=== PATIENT | female | born 1995 | race Caucasian/White ===

== ENCOUNTER 2024-11-23 10:23 | Outpatient (AMB) | payer MEDICAID, SELFPAY ==
[2024-11-23 10:37] VITALS: BP 102/67; PULSE 108; RESP 18; TEMP 36.2; O2SAT 98; BMI 22.6
--- NOTE | 2024-11-23 10:37 | OBCLNT_ITS ---
Vital Signs 11/23/24 10:37 Height 1.63 m Height Method Stated Weight 59.874 kg Weight Measurement Method Standing Scale BMI 22.6 BP 102/67 Blood Pressure Source Automatic Cuff Blood Pressure Location Left Upper Arm Position Sitting Respiration 18 Pulse 108 H Pulse Source Monitor Temp 97.2 F Temp Source Oral Pulse Oximetry (%) 98 Oxygen Delivery Method Room Air Allergies/Home Meds Allergies & Medications Allergies No Known Allergies Allergy (Verified 11/23/24 10:39) Medication Reconciliation No Known Home Medications 11/23/24 [History Confirmed 11/23/24] Intake Visit Data Collection New Patient or Established: Established Patient (seen at [facility] within 3 years) Reason for Visit:: OBI Seen by Clinical Staff ONLY (RN/MA): No Mat Packer Required: No Do You Feel Safe at Home: Yes Authorities Contacted: N/A PCP or OBGYN visit in last 3 months: Yes Hx Now: Yes Are you currently on any form of Control: No Last menstrual period: 06/17/24 Pain Present Currently: No Pain Scale Used: Zambrano-Eldridge/Numerical Pain scale:: 0 Smoking Status Smoking Status: Current every day smoker Cessation Counseling Provided: BETTY was advised that quitting smoking is the single most important factor to protect the health of themselves and their family. Discussed the benefits of quitting smoking with patient. Encouraged patient to quit smoking and provided Cessation assistance materials and resources. Tobacco Use: Cigarette (stopped) Years smoked: 0 (patient stopped smoking x 2 years) Are you interested in Quitting?: No Questionnaires Covid-19 Vaccine Questionnaire Has patient been vacinated for Covid-19 Have you been vacinated for Covid-19: Yes PHQ-9 PHQ-2 Over the last 2 weeks, how often have you been bothered by any of the following problems? 1. Little interest or pleasure in doing things: not at all 2. Feeling down, depressed, or hopeless: not at all Total score: 0 PHQ-9 3. Trouble falling or staying asleep, or sleeping too much: Not at all 4. Feeling tired or having little energy: Not at all 5. Poor appetite or overeating: Not at all 6. Feeling bad about yourself - or that you are a failure or have let yourself or your family down: Not at all 7. Trouble concentrating on things, such as reading the newspaper or watching television: Not at all 8. Moving or speaking so slowly that other people could have noticed? - Or the opposite - being so fidgety or restless that you have been moving around a lot more than usual: not at all 9. Thoughts that you would be better off or of hurting yourself in some way: Not at all Total score: 0 If you checked off any problems, how difficult have these problems made it for you to do your work, take care of things at home, or get along with other people?: not difficult at all Source: Developed by Drs. Jose Last, Latrice Baron, Boy Novak and colleagues, with an educational gus from [employer]. Depression screen completed yes Social History Living Situation History Marital Status: Single Lives With: Family Housing: House Tobacco History Smoking Status: Current every day smoker Second Hand Smoke Exposure: No Alcohol History Alcohol Intake: Never Domestic Abuse History Do You Feel Safe at Home: Yes History of Present Illness HPI Narrative 29-year-old 4 para 3 for OBI. Patient has poor dates. She thinks maybe her last period was June 17, 2024. Estimated due date March 22, 2025. Patient is 23 and 1 weeks today she reports movement. Denies any contractions. No leaking no bleeding. Patient does not have custody of her last 3 children. She reports she is in a better relationship now and is monogamous. Denies any social habits. Denies surgeries. Denies any existing chronic illness. Patient is currently taking vitamins. 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 No dates. Patient thinks maybe June 17, 2024. Reports movement. Denies any leaking or bleeding. Patient is taking vitamins. And she is happy about this . Schedule anatomy scan at [facility]. Patient has no transportation. OB panel today with 1 hour GTT hemoglobin A1c is NIPT and carrier screens. Discussed labor. Encourage fluids. I discussed diet and weight gain and patient to continue prenatals Menstrual History Menstrual reliability: approximate (month known) Flow: normal Menstrual regularity: regular Monthly: Yes Age at menarche: 14 On control pills at conception: No OB History : 4 Para: 3 Hx # Pregnancies: 0 Hx Total # of Abortions (Spontaneous & Elective): 0 # of Living Children: 3 Infection History & Risk Evaluation History of STDs: none HIV risk evaluation: low risk Hepatitis B risk evaluation: low risk Patient or partner has history of Genital Herpes: No Varicella/chicken pox status: immunized Genetic Screening & History Genetic Screening/Teratology Counseling - Includes patient, baby's father, or anyone in either family with: 1. Patient's age 35 years or older as of estimated date of delivery: No 2. Thalassemia (Citizen Of [place], Ukrainian, Mediterranean, or Background); MCV less than 80: No 3. Neural Tube Defect (Meningomyelocele, Spina Bifida, or Anencephaly): No 4. Congenital Heart Defect: No 5. Down Syndrome: No 6. Dariel-Sachs (Ashkenazi Hoahaoism, Cajun, English [place]): No 7. Manuelito Disease (Ashkenazi Hoahaoism): No 8. Familial Dysautonomia (Ashkenazi Hoahaoism): No 9. Sickle Cell Disease or Trait (): No 10. Hemophilia or other blood disorders: No 11. Muscular Dystrophy: No 12. Cystic Fibrosis: No 13. [place]'s Chorea: No 14. Mental Retardation/Autism: No 15. Other inherited genetic or chromosomal disorder: No 16. Maternal Metabolic Disorder (EG,TYPE 1 Diabetes, PKU): No 17. Patient or baby's father had a child with defects not listed above: No 18. Recurrent loss or a stillbirth: No 19. Medications (including supplements, vitamins, herbs or otc drugs)/illicit/recreational drugs/alcohol since last menstrual period: No 20. Any other: No Infection History 1. Live with someone with TB or exposed to TB: No 2. Rash or viral illness since last menstrual period: No 3. Hepatitis B,C: No Other (see comments) Source: [employer] Review of Systems Review of Systems Systems Reviewed: All systems reviewed, normal except as documented Exam General Limitations: no limitations General Appearance: alert, in no apparent distress, comfortable, cooperative, healthy appearing, well developed and well groomed ENT ENT exam: Present normal exam, normal oropharynx and mucous membranes moist Chest Chest inspection: Present normal inspection and symmetric chest wall rise Resp Respiratory exam: Present normal lung sounds bilaterally Card Cardiovascular exam: Present regular rate, normal rhythm and normal heart sounds Abdominal Abdominal exam: Present soft and normal bowel sounds Psych Psychiatric exam: Present normal affect and normal mood Office Procedures OB Clinic LOC & Office Proc's Nursing/Assessment Patient Status: Established Patient OB Clinic Nursing Assessment: Medication Reconciliation, Update PMH in EMR and Vital Signs OB Clinic Coordination of Care: Complex Care and Chronic Disease 1-5, Education Complex Pt/Fam, Consent,records obtained, informed consent, Lab and Imaging orders, Results/Orders obtained and Staff clarify orders Special Needs: Heart tones Established Patient Charge Established Patient Point Assignment: 140 Established Patient Point Charge: EP Level 4 (120-155) Assessment & Plan Diagnosis / Problem List (1) Encounter for supervision of high risk in second trimester, antepartum: Status: Acute Plan OB panel today with 1 hour GTT, hemoglobin A1c, NIPT and carrier screens. I scheduled OB sono at [facility]. Patient does not have transportation. Discussed labor signs and symptoms and prevention. Increase fluids. And return in 4 weeks OB check Additional Plan Follow Up: 4 Weeks (obc)
== END 2024-11-23 11:01 | disposition home or self-care (01) ==
LOC: HODSOBC 10:23
PROVIDERS: Supervising Provider Advanced Practice Midwife; Visit Provider Advanced Practice Midwife
DX: O09.92 Supervision of high risk pregnancy, unspecified, second trimester (principal); Z3A.22 22 weeks gestation of pregnancy; Z59.82 Transportation insecurity
CPT/HCPCS: 99214; G0463

== ENCOUNTER 2024-11-29 18:31 | Emergency (ER) | payer MEDICAID, SELFPAY ==
[2024-11-29 18:32] VITALS: BMI 23.5
[2024-11-29 18:57] VITALS: BP 104/72; PULSE 112; RESP 18; TEMP 37.3; O2SAT 98
--- NOTE | 2024-11-29 19:44 | EDNOTE_ITS ---
ED Fever RME/HPI General Chief Complaint: Fever Stated Complaint: FEVER X 4-5 DAYS; PREG [id number] Time Seen by Provider: 11/29/24 18:54 Arrival date/time: 11/29/24 18:31 RME / HPI RME / HPI Narrative: 29-year-old female presents to the ED with a complaint of fever x 4 to 5 days , right flank pain, urinary frequency, dysuria with scant amounts. She is currently and states she has been unable to feel her baby move for the past 2 days. She has had some cramping but denies any spotting. Related Data Home Medications ?Medication ?Instructions ?Recorded ?Confirmed No Known Home Medications 11/23/2403/11 Allergies Allergy/AdvReac Type Severity Reaction Status Date / Time No Known Allergies Allergy Verified 11/29/24 18:35 Review of Systems Review of Systems Systems Reviewed: All systems reviewed, normal except as documented Past Medical History Past Medical History NEUROLOGIC: Negative Neurological Disorders CARDIAC: Negative Congestive Heart Failure RESPIRATORY: Negative Chronic Obstructive Pulmonary Disease (COPD) GENITOURINARY: Negative Renal Disease REPRODUCTIVE: Negative Pelvic Inflammatory Disease MUSCULOSKELETAL: Negative Musculoskeletal Disorders ENDOCRINE: Negative Diabetes Mellitus Type 1 or Diabetes Mellitus Type 2 HEMATOLOGIC: Negative Blood Disorders OTHER HISTORY: Negative Autoimmune Disease or Blood Transfusions Family History FAMILY HISTORY: Negative Family Psychiatric Problems, Family Respiratory Disorders, Family Cardiac Disorders, Family Gastrointestinal Problems, Family Cancer, Family Surgery or Family Anesthesia Reaction Surgical History SURGICAL: Negative Cardiac Surgery or Section Social History SMOKING STATUS: Former smoker SECOND HAND EXPOSURE: No Physical Exam Narrative Physical exam: Alert and oriented 29-year-old female, afebrile, no acute distress. Blood pressure 104/72, pulse 112, respirations 18 nonlabored, temp 99.2, O2 sat 98% on room air. Lungs are clear, tachycardia noted, normal rhythm. Abdomen is soft and nontender. Course Course Course Narrative: Labs ordered including COVID 19 swab, influenza A/B swab, urinalysis, urine drug screen, and heart tones. Above orders were unable to be completed as patient eloped from the waiting room. Quality Measures none Orders Category Date Time Status Bedside COVID-19 Antigen Test NOW Care 11/29/24 19:45 Completed Bedside Influenza A&B Antigen Test NOW Care 11/29/24 19:47 Completed heart tone auscultation ONCE Care 11/29/24 19:45 Completed Reevaluation(s) Reevaluation #1: Eloped Vital Signs Vital signs: Vital Signs Temperature 99.2 F 11/29/24 18:57 Pulse Rate 112 H 11/29/24 18:57 Respiratory Rate 18 11/29/24 18:57 Blood Pressure 104/72 11/29/24 18:57 Pulse Oximetry (%) 98 11/29/24 18:57 Oxygen Delivery Method Room Air 11/29/24 18:57 Fever MDM Narrative MDM Narrative:: 29-year-old female presents to the ED with a complaint of fever x 4 to 5 days , right flank pain, urinary frequency, dysuria with scant amounts. She is currently and states she has been unable to feel her baby move for the past 2 days. She has had some cramping but denies any spotting. Alert and oriented 29-year-old female, afebrile, no acute distress. Blood pressure 104/72, pulse 112, respirations 18 nonlabored, temp 99.2, O2 sat 98% on room air. Lungs are clear, tachycardia noted, normal rhythm. Abdomen is soft and nontender. Labs ordered including COVID 19 swab, influenza A/B swab, urinalysis, urine drug screen, and heart tones. Above orders were unable to be completed as patient eloped from the waiting room. Patient data External records reviewed:: None Clinical information provided by:: patient Social determinants that could affect healthcare access:: none Patient has the following chronic illnesses:: High risk , history of methamphetamine abuse, history of subchorionic hemorrhage. How is presenting disease/condition affected by chronic disease/condition?: uneffected by Evaluation data The following diagnostics were reviewed and interpreted by me:: other (specify) (N/A due to patient elopement.) Lab and/or radiology exams considered but not ordered:: N/A Interpretation Summary: N/A due to elopement Medications / Prescriptions Medications or Prescriptions considered but not ordered:: N/A Medication administrations:: N/A Consultations Consultation(s) initiated? (list below): No Diagnosis Fever Differential Diagnosis: fever of unknown origin, pyelonephritis, viral infection, sepsis and influenza Most likely diagnosis given after review of the tests above:: Unknown due to elopement Admission Indicated Admission indicated?: not indicated Explain why admission is indicated or not indicated:: Patient eloped Admission Request Was there a request for admission?: No Admission Attestation Admission request attestation: Patient eloped Disposition Plan Disposition Plan: other (specify) (Elopement) Discharge Attestation Discharge Attestation: Elopement Discharge Plan Plan Patient Disposition: Elopement Prescriptions/Referrals Prescriptions/Med Rec: No Action No Known Home Medications Referrals: Jean Claude Medrano MD [Primary Care Provider] - In 1 week Problem List Clinical Impression: Fever of unknown origin, Flank pain Patient/Caregiver Discharge Instructions Print Language: Indonesian PA/ACCOUNT RECEIVABLE ASSOCIATE Supervising Physician PA/ACCOUNT RECEIVABLE ASSOCIATE Supervising Physician: Dr. Whitt
--- NOTE | 2024-11-29 21:50 | PC.NURSE ---
CALLED FOR PT FROM LOBBY/OUTSIDE, NO ANSWERX1@ [phone]
--- NOTE | 2024-11-29 22:08 | PC.NURSE ---
CALLED FOR PT FROM LOBBY/OUTSIDE, NO ANSWERX2 @[phone]
--- NOTE | 2024-11-29 22:20 | PC.NURSE ---
CALLED PATIENT IN THE LOBBY AND OUTSIDE, NO ANSWER RECEIVED.
== END 2024-11-29 22:21 | disposition left against medical advice (07) ==
PROVIDERS: Emergency Provider Emergency Medicine; PCP Family Medicine
DX: O99.891 Other specified diseases and conditions complicating pregnancy (principal); R50.9 Fever, unspecified; R10.9 Unspecified abdominal pain; R35.0 Frequency of micturition; R30.0 Dysuria; Z3A.19 19 weeks gestation of pregnancy; Z53.29 Procedure and treatment not carried out because of patient's decision for other reasons
CPT/HCPCS: 80307; 81001; 87086; 99281